=== PATIENT | female | born 1985 | race Caucasian/White ===

== ENCOUNTER 2017-04-01 02:09 | Emergency (ER) | payer MEDICAID ==
[2017-04-01 03:56] VITALS: BP 127/81
== END 2017-04-01 03:56 | disposition home or self-care (01) ==
LOC: ED 02:09
DX: T63.311A Toxic effect of venom of black widow spider, accidental (unintentional), initial encounter (principal); R20.2 Paresthesia of skin; M25.571 Pain in right ankle and joints of right foot; M25.572 Pain in left ankle and joints of left foot; Z79.3 Long term (current) use of hormonal contraceptives; Z79.899 Other long term (current) drug therapy; Z87.19 Personal history of other diseases of the digestive system; Z91.030 Bee allergy status; Y92.89 Other specified places as the place of occurrence of the external cause

== ENCOUNTER 2018-04-03 22:00 | Emergency (ER) | payer MEDICAID ==
[~2018-04-03] VITALS: Ht 157.5 cm; Wt 110.2 kg
[2018-04-03 22:44] VITALS: Ht 157.5 cm; Wt 110.2 kg
[2018-04-04 00:55] VITALS: BP 139/87
== END 2018-04-04 00:55 | disposition home or self-care (01) ==
LOC: ED 22:00
DX: M72.2 Plantar fascial fibromatosis (principal); Z88.8 Allergy status to other drugs, medicaments and biological substances; Z91.030 Bee allergy status; Z90.49 Acquired absence of other specified parts of digestive tract

== ENCOUNTER 2018-04-22 13:44 | Emergency (ER) | payer MEDICAID ==
[~2018-04-22] VITALS: Ht 157.5 cm; Wt 107.5 kg
[2018-04-22 13:47] VITALS: Ht 157.5 cm; Wt 107.5 kg
[2018-04-22 15:04] LABS: BASOPHIL % 1.3 % (0-2); PLATELET COUNT 351 x10^3mcL (130-400); RED CELL DISTRIBUTION WIDTH 14.1 % (11.5-14.5)
[2018-04-22 15:07] LABS: CALCIUM 8.8 mg/dL (8.5-10.1); CARBON DIOXIDE 26.6 mmol/L (21-32); CHLORIDE SERUM 103 mmol/L (98-107); CREATININE SERUM 0.7 mg/dL (0.6-1.0); GFR1 > 60 mL/min; GLUCOSE SERUM 106 mg/dL (74-106); POTASSIUM SERUM 3.7 mmol/L (3.5-5.1); SODIUM SERUM 138 mmol/L (136-145)
[2018-04-22 15:11] LABS: ALKALINE PHOSPHATASE 103 U/L (46-116); ALT/SGPT 24 U/L (14-59); AST/SGOT 14 U/L (15-37); BILIRUBIN TOTAL 0.3 mg/dL (0.20-1.00); LIPASE 90 IU/L (73-393); TOTAL PROTEIN, SERUM 7.4 g/dL (6.4-8.2)
[2018-04-22 15:16] LABS: ALBUMIN 3.2 g/dL (3.4-5.0)
[2018-04-22 19:16] VITALS: BP 104/51
== END 2018-04-22 19:16 | disposition home or self-care (01) ==
LOC: ED 13:44
PROVIDERS: Emergency Medicine
DX: R10.9 Unspecified abdominal pain (principal); F17.210 Nicotine dependence, cigarettes, uncomplicated; F41.9 Anxiety disorder, unspecified; M19.90 Unspecified osteoarthritis, unspecified site; Z88.8 Allergy status to other drugs, medicaments and biological substances; Z91.030 Bee allergy status
CPT/HCPCS: J1885; J2405; J3010; J7030; Q0092

== ENCOUNTER 2018-07-11 10:59 | Emergency (ER) | payer MEDICAID ==
[~2018-07-11] VITALS: Ht 157.5 cm; Wt 113.4 kg
[2018-07-11 11:02] VITALS: Ht 157.5 cm; Wt 113.4 kg
[2018-07-11 13:52] VITALS: BP 124/75
== END 2018-07-11 13:52 | disposition home or self-care (01) ==
LOC: ED 10:59
DX: B34.9 Viral infection, unspecified (principal); J45.909 Unspecified asthma, uncomplicated; F41.9 Anxiety disorder, unspecified; M19.90 Unspecified osteoarthritis, unspecified site; Z98.890 Other specified postprocedural states; Z88.8 Allergy status to other drugs, medicaments and biological substances; Z91.030 Bee allergy status
CPT/HCPCS: 87804; Q0169

== ENCOUNTER 2018-07-13 05:35 | Emergency (ER) | payer MEDICAID ==
[~2018-07-13] VITALS: Ht 157.5 cm; Wt 109.8 kg
[2018-07-13 05:43] VITALS: BP 121/78; Ht 157.5 cm; Wt 109.8 kg
== END 2018-07-13 07:15 | disposition home or self-care (01) ==
LOC: ED 05:35
DX: J03.90 Acute tonsillitis, unspecified (principal); F41.9 Anxiety disorder, unspecified; M19.90 Unspecified osteoarthritis, unspecified site; Z90.49 Acquired absence of other specified parts of digestive tract; Z98.890 Other specified postprocedural states
CPT/HCPCS: J0561; J1100

== ENCOUNTER 2018-07-19 00:17 | Emergency (ER) | payer MEDICAID ==
[~2018-07-19] VITALS: Ht 157.5 cm; Wt 113.9 kg
[2018-07-19 00:20] VITALS: Ht 157.5 cm; Wt 113.9 kg
[2018-07-19 02:24] LABS: RED CELL DISTRIBUTION WIDTH 14.2 % (11.5-14.5)
[2018-07-19 02:40] LABS: BASOPHIL % 4.4 % (0-2); PLATELET COUNT 489 x10^3mcL (130-400)
[2018-07-19 02:53] LABS: CALCIUM 8.6 mg/dL (8.5-10.1); CARBON DIOXIDE 27.2 mmol/L (21-32); CHLORIDE SERUM 105 mmol/L (98-107); CREATININE SERUM 0.9 mg/dL (0.6-1.0); GFR1 > 60 mL/min; GLUCOSE SERUM 131 mg/dL (74-106); SODIUM SERUM 139 mmol/L (136-145)
[2018-07-19 02:58] LABS: ALKALINE PHOSPHATASE 115 U/L (46-116); ALT/SGPT 26 U/L (14-59); AST/SGOT 15 U/L (15-37); BILIRUBIN TOTAL 0.13 mg/dL (0.20-1.00); TOTAL PROTEIN, SERUM 7.6 g/dL (6.4-8.2)
[2018-07-19 03:02] LABS: ALBUMIN 3.2 g/dL (3.4-5.0)
[2018-07-19 04:40] VITALS: BP 116/82
== END 2018-07-19 04:40 | disposition home or self-care (01) ==
LOC: ED 00:17
PROVIDERS: Emergency Medicine
DX: M94.0 Chondrocostal junction syndrome [Tietze] (principal); J45.909 Unspecified asthma, uncomplicated; F41.9 Anxiety disorder, unspecified; M19.90 Unspecified osteoarthritis, unspecified site; Z98.890 Other specified postprocedural states; Z88.8 Allergy status to other drugs, medicaments and biological substances; Z91.030 Bee allergy status
CPT/HCPCS: 83880; 85378; J1885

== ENCOUNTER 2019-02-08 20:57 | Emergency (ER) | payer MEDICAID ==
[~2019-02-08] VITALS: Ht 157.5 cm; Wt 115.3 kg
[2019-02-09 00:56] VITALS: BP 128/72
== END 2019-02-09 00:56 | disposition home or self-care (01) ==
LOC: ED 20:57
DX: R51 Headache (principal); G51.0 Bell's palsy; J45.909 Unspecified asthma, uncomplicated; F41.9 Anxiety disorder, unspecified; Z98.890 Other specified postprocedural states; Z90.49 Acquired absence of other specified parts of digestive tract; Z91.030 Bee allergy status; Z88.8 Allergy status to other drugs, medicaments and biological substances
CPT/HCPCS: J2765

== ENCOUNTER 2019-02-11 11:33 | Emergency (ER) | payer MEDICAID ==
[~2019-02-11] VITALS: Ht 157.5 cm; Wt 114.3 kg
[2019-02-11 11:42] VITALS: Ht 157.5 cm; Wt 114.3 kg
[2019-02-11 13:29] LABS: CALCIUM 9.2 mg/dL (8.5-10.1); CARBON DIOXIDE 27.1 mmol/L (21-32); CHLORIDE SERUM 106 mmol/L (98-107); CREATININE SERUM 0.7 mg/dL (0.6-1.0); GFR1 > 60 mL/min; GLUCOSE SERUM 102 mg/dL (74-106); SODIUM SERUM 141 mmol/L (136-145)
[2019-02-11 13:33] LABS: ALBUMIN 3.7 g/dL (3.4-5.0); ALKALINE PHOSPHATASE 100 U/L (46-116); ALT/SGPT 21 U/L (14-59); AST/SGOT 10 U/L (15-37); BILIRUBIN TOTAL 0.16 mg/dL (0.20-1.00); LIPASE 78 IU/L (73-393)
[2019-02-11 13:59] LABS: BASOPHIL % 0.3 % (0-2); PLATELET COUNT 397 x10^3mcL (130-400)
[2019-02-11 17:06] VITALS: BP 133/88
== END 2019-02-11 17:06 | disposition home or self-care (01) ==
LOC: ED 11:33
PROVIDERS: Emergency Medicine
DX: R07.89 Other chest pain (principal); K29.70 Gastritis, unspecified, without bleeding; R51 Headache; J45.909 Unspecified asthma, uncomplicated; K21.9 Gastro-esophageal reflux disease without esophagitis; Z98.890 Other specified postprocedural states; Z91.030 Bee allergy status; Z88.6 Allergy status to analgesic agent
CPT/HCPCS: 36415; J1885; Q0092

== ENCOUNTER 2019-06-01 10:26 | Emergency (ER) | payer MEDICAID ==
[~2019-06-01] VITALS: Ht 157.5 cm; Wt 117.0 kg
[2019-06-01 11:00] VITALS: Ht 157.5 cm; Wt 117.0 kg
[2019-06-01 12:01] LABS: BASOPHIL % 0.6 % (0-2); PLATELET COUNT 333 x10^3mcL (130-400); RED CELL DISTRIBUTION WIDTH 14.5 % (11.5-14.5)
[2019-06-01 12:06] LABS: CALCIUM 8.5 mg/dL (8.5-10.1); CARBON DIOXIDE 30.7 mmol/L (21-32); CHLORIDE SERUM 104 mmol/L (98-107); CREATININE SERUM 0.6 mg/dL (0.6-1.0); GFR1 > 60 mL/min; GLUCOSE SERUM 92 mg/dL (74-106); POTASSIUM SERUM 3.7 mmol/L (3.5-5.1); SODIUM SERUM 139 mmol/L (136-145)
[2019-06-01 12:08] LABS: ALBUMIN 3.2 g/dL (3.4-5.0); ALKALINE PHOSPHATASE 96 U/L (46-116); ALT/SGPT 21 U/L (14-59); AST/SGOT 16 U/L (15-37); BILIRUBIN TOTAL 0.3 mg/dL (0.20-1.00); TOTAL PROTEIN, SERUM 6.9 g/dL (6.4-8.2)
[2019-06-01 13:32] LABS: UA SPECIFIC GRAVITY 1.015 (1.005-1.035); microscopic required? YES; urine erythrocyte TRACE (NEGATIVE)
[2019-06-01 14:36] VITALS: BP 122/65
== END 2019-06-01 14:36 | disposition home or self-care (01) ==
LOC: ED 10:26
PROVIDERS: Emergency Medicine
DX: R10.32 Left lower quadrant pain (principal); R11.0 Nausea; R68.83 Chills (without fever); J45.909 Unspecified asthma, uncomplicated; F41.9 Anxiety disorder, unspecified; K21.9 Gastro-esophageal reflux disease without esophagitis; M19.90 Unspecified osteoarthritis, unspecified site; Z91.030 Bee allergy status; Z88.8 Allergy status to other drugs, medicaments and biological substances; Z98.890 Other specified postprocedural states
CPT/HCPCS: J1885; J3010; J7030

== ENCOUNTER 2020-01-06 00:08 | Emergency (ER) | payer MEDICAID, SELFPAY ==
[~2020-01-06] VITALS: Ht 157.5 cm; Wt 116.6 kg
[2020-01-06 00:26] VITALS: Ht 157.5 cm; Wt 116.6 kg
[2020-01-06 01:29] LABS: CALCIUM 8.3 mg/dL (8.5-10.1); CARBON DIOXIDE 27.3 mmol/L (21-32); CHLORIDE SERUM 100 mmol/L (98-107); CREATININE SERUM 0.8 mg/dL (0.6-1.0); GFR1 > 60 mL/min; GLUCOSE SERUM 115 mg/dL (74-106); POTASSIUM SERUM 3.6 mmol/L (3.5-5.1); SODIUM SERUM 136 mmol/L (136-145)
[2020-01-06 01:33] LABS: ALBUMIN 3.5 g/dL (3.4-5.0); ALKALINE PHOSPHATASE 120 U/L (46-116); ALT/SGPT 57 U/L (14-59); AST/SGOT 41 U/L (15-37); LIPASE 92 IU/L (73-393); TOTAL PROTEIN, SERUM 7.4 g/dL (6.4-8.2)
[2020-01-06 01:55] LABS: BASOPHIL % 0.5 % (0-2); PLATELET COUNT 229 x10^3mcL (130-400); RED CELL DISTRIBUTION WIDTH 16.4 % (11.5-14.5)
[2020-01-06 05:16] VITALS: BP 108/65
== END 2020-01-06 05:16 | disposition home or self-care (01) ==
LOC: ED 00:08
PROVIDERS: Emergency Medicine
DX: U07.1 COVID-19 (principal); K52.9 Noninfective gastroenteritis and colitis, unspecified; J45.909 Unspecified asthma, uncomplicated; M19.90 Unspecified osteoarthritis, unspecified site; Z98.890 Other specified postprocedural states; Z87.19 Personal history of other diseases of the digestive system; Z88.8 Allergy status to other drugs, medicaments and biological substances; Z91.030 Bee allergy status
CPT/HCPCS: J1885; J2405; U0003-CS